=== PATIENT | female | born 1945 | race Caucasian/White ===

== ENCOUNTER 2019-01-22 07:25 | Day surgery (SDC) | payer MEDICARE, OTHER ==
[~2019-01-22] VITALS: Ht 154.9 cm; Wt 97.3 kg
[~2019-01-22 07:25] MED LIST: ASPIRIN X; ATORVASTATIN; BASAGLAR; EPOGEN; HYDRALAZINE; METOPROLOL; NORVASC; NOVOLOG; TRADJENTA
[2019-01-22 08:36] VITALS: Ht 154.9 cm; Wt 97.3 kg
[2019-01-22 09:36] VITALS: BP 146/65; PULSE 65; RESP 10
[2019-01-22] MEDS ORDERED: LIDOCAINE 2% (SDV) 5 ML INJ ONE (09:51)
[2019-01-22] MEDS ORDERED: PROPOFOL 60 ML ONE (09:51)
[2019-01-22 10:27] VITALS: BP 122/56; PULSE 60; RESP 25
[2019-01-22 10:55] VITALS: BP 122/56; PULSE 68; RESP 20
[2019-01-22] MEDS ORDERED: ONDANSETRON 4 MG INJ IV PRN (11:00)
[2019-01-22] MEDS ORDERED: FENTAnyl 50 MCG/ML VIAL IV PRN (11:00)
[2019-01-22] MEDS ORDERED: LABETALOL HCL 20MG INJ IV PRN (11:00)
[2019-01-22] MEDS ORDERED: hydrALAzine 20 MG INJ IV PRN (11:00)
[2019-01-22] MEDS ORDERED: EPHEDrine 25 MG/5 ML SYG IV PRN (11:00)
== END 2019-01-22 12:07 | disposition home or self-care (01) ==
LOC: GIL 07:25
PROVIDERS: ATTEND Internal Medicine Gastroenterology
DX: D12.5 Benign neoplasm of sigmoid colon (principal); D12.2 Benign neoplasm of ascending colon; K64.8 Other hemorrhoids; K21.9 Gastro-esophageal reflux disease without esophagitis; K29.50 Unspecified chronic gastritis without bleeding; D50.0 Iron deficiency anemia secondary to blood loss (chronic); I10 Essential (primary) hypertension; I25.10 Atherosclerotic heart disease of native coronary artery without angina pectoris; I11.9 Hypertensive heart disease without heart failure; Z79.82 Long term (current) use of aspirin
CPT/HCPCS: 82962; 88305; 88312